=== PATIENT | male | born 2000 | race Caucasian/White ===

== ENCOUNTER 2020-08-13 11:27 | Observation (INO) | payer OTHER, SELFPAY ==
[2020-08-13] VITALS (11 sets, daily range): BP systolic 115–147; BP diastolic 67–98; PULSE 78–120; RESP 16–18; TEMP 36.2–37.4; O2SAT 94–100; BMI 27.9; BMI 27.6
--- NOTE | 2020-08-13 11:39 | CT_ITS ---
EXAM: CT ABDOMEN AND PELVIS WITH INTRAVENOUS CONTRAST CLINICAL INDICATION: RLQ pain -- IV PO Contrast TECHNIQUE: Helically acquired images were obtained of the abdomen and pelvis with intravenous contrast. This CT exam was performed using one or more of the following dose reduction techniques: automated exposure control, adjustment of the mA and/or kV according to patient size, and/or use of iterative reconstruction technique. This report was created using [employer] report generation technology. CONTRAST: Oral and amp; IV Gastrografin and amp; 100mL Isovue-300 COMPARISON: None. FINDINGS: LOWER THORAX: Unremarkable. Lung bases are clear. No cardiomegaly. No significant pericardial effusion. ABDOMEN: LIVER: Unremarkable. Homogeneous. No focal mass. GALLBLADDER AND BILE DUCTS: Unremarkable. No calcified gallstones. No gallbladder distention or wall edema. No intra- or extrahepatic biliary ductal dilation. PANCREAS: Unremarkable. No focal cystic or solid mass. SPLEEN: Splenectomy. ADRENALS: Unremarkable. No nodules. KIDNEYS AND URETERS: Unremarkable. Normal renal size and position. No hydronephrosis. Normal variant retroaortic left renal vein. STOMACH AND BOWEL: Unremarkable. No stomach or bowel distention. No focal inflammatory change. PELVIS: APPENDIX: Dilated (10 mm) thick walled appendix in the right lower quadrant with periappendiceal and pericecal stranding suggesting appendicitis. BLADDER: Unremarkable. REPRODUCTIVE: Unremarkable as visualized. No mass. ABDOMEN and PELVIS: INTRAPERITONEAL SPACE: Unremarkable. No ascites or other fluid collection. No free air. BONES/JOINTS: Unremarkable. No suspicious lytic or blastic abnormality. SOFT TISSUES: Unremarkable. No discrete abdominal or pelvic wall hernia. VASCULATURE: Unremarkable. Abdominal aorta is non-dilated. LYMPH NODES: Reactive lymph nodes in the right lower quadrant mesentery. CT/Abdomen/Pelvis WITH Contrast IMPRESSION: Dilated (10 mm) thick walled appendix in the right lower quadrant with periappendiceal and pericecal stranding suggesting appendicitis. No focal abscess, perforation or pneumoperitoneum. Electronically Signed: Ernesto Zimmerman MD ([place]) at 14:02 EDT , Service support ,
--- NOTE | 2020-08-13 11:40 | ED.VIS.GI ---
HPI HPI - GI History of Present Illness Chief Complaint: Abd Pain Informant: patient and parent Abdominal Pain/Flank Pain Onset: Yesterday (around 13 hrs prior to eval here) Context: Gradual Onset Timing: Continuous Quality: Aching Location: RLQ and - (Initially felt a little in left abdomen/periumbilical as well as RLQ) Current Severity: Moderate Maximum Severity: Moderate Worsened by: Car ride Relieved by: Nothing Nausea/Vomiting/Emesis GI Symptom: Positive for Nausea; Negative for Vomiting Diarrhea/Melena/Hematochezia GI Symptom: Negative for Diarrhea, Melena and Hematochezia Associated Symptoms Associated Symptoms: Negative for Dysuria, Frequency, Hematuria and Urgency Narrative Narrative: Spontaneous onset and worsening of right lower quadrant pain, does not radiate but did become more focused in the right lower quadrant today whereas yesterday it was also in the left mid abdomen. No subjective fevers or chills prior to coming here. Initially was at urgent care and there was concern for appendicitis so they referred him here to the emergency department. Nauseated, no vomiting or diarrhea. He has a remote history of ITP that was treated with a splenectomy, he states he has had no acute issues recently. [facility] Medical History Chronic ITP (idiopathic thrombocytopenia) History of cleft palate Allergy/AdvReac Type Severity Reaction Status Date / Time No Known Allergies Allergy Verified 08/13/20 11:31 Surgical History Cleft palate H/O splenectomy Social History Smoking Status: Never smoker ROS ROS ED Constitutional Constitutional ED: Denies chills or fever(s) Eyes Eyes: Denies change in vision or diplopia ENT ENT ED: Denies rhinorrhea or sore throat Cardiovascular Cardiovascular: Denies chest pain or palpitations Respiratory/Chest Respiratory/Chest: Denies cough or dyspnea Gastrointestinal Gastrointestinal: Reports as per HPI, abdominal pain and nausea; Denies diarrhea or vomiting Genitourinary Genitourinary ED: Denies dysuria or hematuria Musculoskeletal Musculoskeletal: Denies back pain or neck pain Integumentary Denies abscess or rash Neurologic Neurologic: Denies headache(s), paresthesias or weakness Psychiatric Psychiatric: Denies anxiety or suicidal thoughts EXAM Physical Exam Const Vital Signs: 08/13/20 11:28 Temperature 99.4 F H Temperature Source Temporal Pulse Rate 120 H Respiratory Rate 18 Blood Pressure 136/97 H Blood Pressure Mean 110 Pulse Ox 94 Oxygen Delivery Method Room Air Positive well nourished and well developed General Appearance ED: well developed and NAD HEENT Reports moist mucous membranes normocephalic and atraumatic Eyes PERRL and EOMs intact bilaterally Neck full ROM and supple Resp normal respiratory effort and clear to auscultation bilaterally Cardio regular rate, regular rhythm and no murmurs Rate: tachycardic GI non-distended Auscultation: normoactive bowel sounds Palpation: soft and tender RLQ, McBurney's point and Psoas sign (Mildly positive with negative obturator and Rovsing signs) Back/Spine no CVA tenderness General Back: other FROM Extremity normal to inspection General Extremety ED: Negative for edema, pulses abnormal or tenderness General Extremity: Negative for edema or pulses abnormal Neuro oriented x3, CN's II-XII intact bilaterally and no sensory deficits noted Sensorium / Orientation: awake and alert Motor Exam: strength 5/5 throughout Skin no rashes or lesions noted and no wounds MDM MDM MDM Narrative Medical decision making narrative: Patient history, exam, and CT are consistent with acute appendicitis. His white blood count is 18.6. Patient is comfortable and declined analgesics. He was given IV fluids, Zofran, Zosyn, discussed with Dr. Ordonez, who will plan for operative management. Lab Data Attestation: I reviewed the patient's lab results. Labs: Laboratory Results - last 24 hr 08/13/20 08/13/20 08/13/20 11:49 11:49 13:06 WBC 18.6 H RBC 5.95 Hgb 17.2 H Hct 49.9 MCV 83.9 MCH 28.9 MCHC 34.5 RDW Std Deviation 40.9 RDW Coeff of Kellie 13.3 Plt Count 465 H MPV 8.7 Immature Gran % (Auto) 0.300 Neut % (Auto) 75.1 H Lymph % (Auto) 15.2 L Reeves % (Auto) 8.7 Eos % (Auto) 0.4 Baso % (Auto) 0.3 Absolute Neuts (auto) 13.9 H Absolute Lymphs (auto) 2.82 Nucleated RBC % 0 Differential Comment SCANNED Diff Path Review May foll Platelet Estimate ADEQUATE RBC Morphology NORM C+C Sodium 138 Potassium 3.7 Chloride 105 Carbon Dioxide 27.0 Anion Gap 6 BUN 14 Creatinine 1.14 Estim Creat Clear Calc 110.09 Est GFR (MDRD) Af Amer 104 Est GFR (MDRD) Non-Af 86 BUN/Creatinine Ratio 12.3 Glucose 98 Calcium 9.3 Urine Color Yellow Urine Clarity Clear Urine pH 6.5 Ur Specific [place] 1.005 Urine Protein Negative Urine Glucose (UA) Normal Urine Ketones Negative Urine Occult Blood Negative Urine Nitrite Negative Urine Bilirubin Negative Urine Urobilinogen Normal Ur Leukocyte Esterase Negative Urine RBC 0 SEEN Urine WBC 0 SEEN Ur Squamous Epith Cells 0-5 SEEN Urine Bacteria 0 SEEN Urine Mucus 0 SEEN Radiography Diagnostic Testing: Radiology Impression Abdomen/Pelvis CT 08/13/20 11:39 IMPRESSION: Dilated (10 mm) thick walled appendix in the right lower quadrant with periappendiceal and pericecal stranding suggesting appendicitis. No focal abscess, perforation or pneumoperitoneum. Electronically Signed: Ernesto Zimmerman MD ([place]) at 14:02 EDT , Service support , Discharge Plan Dx/Rx/DC Orders Clinical Impression: Acute appendicitis Disposition Disposition: Acute Care Hospital [facility]
[2020-08-13 11:55] LABS: Absolute Lymphocyte Count 2.82 X10^3/uL (0.83-4.51); Absolute Neutrophil Count 13.9 X10^3/uL (2.0-7.7); Basophil# 0.05 X10^3/uL; Basophil% 0.3 % (0-1); Eosinophil# 0.08 X10^3/uL; Eosinophils% 0.4 % (0-5); Hematocrit 49.9 % (40-54); Hemoglobin 17.2 g/dL (13.0-16.5); Lymphocyte # 2.82 X10^3/ul (0.83-4.51); Lymphocyte % 15.2 % (19-41); Mean Corp Hgb Conc 34.5 g/dL (32-36); Mean Corpuscular Hgb 28.9 pg (27.0-32.0); Mean Corpuscular Volume 83.9 fL (80-94); Mean Platelet Vol. 8.7 fl (6.2-12.0); Monocyte# 1.62 X10^3/uL; Monocyte% 8.7 % (0-10); NRBC Flagged by Analyzer 0 % (0-5); Neutrophil # 13.94 X10^3/uL (2.7-7.7); Neutrophil % 75.1 % (47-70); POSITIVE DIFFERENTIAL YES; Platelet Count 465 K/mm3 (150-450); RBC Distribution Width CV 13.3 % (11.6-14.6); RBC Distribution Width SD 40.9 fl (35.1-43.9); Red Blood Count 5.95 M/mm3 (4.6-6.2); White Blood Count 18.6 K/mm3 (4.4-11.0)
[2020-08-13] MEDS: Ondansetron 4 MG/2 ML Vial IV (11:55)
[2020-08-13 11:56] LABS: Differential Indicated SCAN CRITERIA MET
[2020-08-13 12:07] LABS: Anion Gap 6 (5-15); BUN 14 mg/dL (7-18); BUN/Creat Ratio 12.3 RATIO (10-20); Calcium,Total 9.3 mg/dL (8.5-10.1); Chloride 105 mmol/L (98-107); Creatinine, Serum 1.14 mg/dL (0.70-1.30); EST Glomerular Filtration Rate 86 mL/min (>60); Est Glom Filt Rate - Afr Amer 104 mL/min (>60); Estimated Creatinine Clearance 110.09 ml/min; Glucose 98 mg/dL (74-106); Potassium 3.7 mmol/L (3.5-5.1); Sodium Level 138 mmol/L (136-145)
[2020-08-13 12:16] LABS: Platelet Estimate ADEQUATE (ADEQ)
[2020-08-13 12:17] LABS: Red Cell Morphology NORM C+C NORMAL (NORM C&C)
[2020-08-13 12:18] LABS: Differential Comment SCANNED
[2020-08-13 13:25] LABS: Bacteria 0 SEEN /hpf (None Seen); Mucous, Urine 0 SEEN /hpf (<or=2+); Red Blood Cells-Urine 0 SEEN /hpf (0-5); White Blood Cells 0 SEEN /hpf (0-5)
[2020-08-13 13:27] LABS: Color, Urine Yellow (Yellow); Glucose, Dipstick Normal (Normal); Ketone-Dipstick Negative (Negative); Leukocyte Esterase-Dipstick Negative /ul (Negative); Nitrite-Dipstick Negative (Negative); Occult Blood-Urine Negative /ul (Negative); Protein-Dipstick Negative (Negative); Specific Gravity, Urine 1.005 (1.002-1.030); Urine Bilirubin Dipstick Negative (Negative); Urine Clarity Clear (Clear); Urine Urobilinogen Normal (Normal); Urine pH 6.5 (5.0 - 8.0)
[2020-08-13 13:34] LABS: Squamous Epithelial Cells - UA 0-5 SEEN /hpf (0-5)
--- NOTE | 2020-08-13 13:47 | NURSING ---
DR BANSAL PAGEJeffry
--- NOTE | 2020-08-13 13:58 | HP.PCM.SX_ITS ---
HPI - General HPI Narrative YOLA PANG, is a 19 M who presents to the ER due to right lower quadrant pain. This started last night and continued till this morning. Patient did have nausea and vomiting. Patient previously had a splenectomy due to chronic ITP which was in 2017. Patient CT abdomen pelvis consistent with acute appendi citis. Patient white blood count 18. Patient did receive Zosyn in the ER. [facility] Medical History (Updated 08/13/20 @ 13:[address] Chace Vazquez MD) Chronic ITP (idiopathic thrombocytopenia) History of cleft palate Allergy/AdvReac Type Severity Reaction Status Date / Time No Known Allergies Allergy Verified 08/13/20 11:31 Surgical History (Updated 08/13/20 @ 11:[address] Chace Vazquez MD) Cleft palate H/O splenectomy Social History Smoking Status: Never smoker Vital Signs Vital Signs Vital Signs: 08/13/20 11:28 Temperature 99.4 F H Temperature Source Temporal Pulse Rate 120 H Respiratory Rate 18 Blood Pressure 136/97 H Blood Pressure Mean 110 Pulse Ox 94 Oxygen Delivery Method Room Air Weight Weight: 200 lb 9.93 oz Body Mass Index (BMI) 27.9 Physical Exam Const alert, oriented x3 and no apparent distress HEENT normocephalic and head/scalp atraumatic Resp normal respiratory effort Cardio regular rate GI soft to palpation; Negative for non-distended Palpation: tender RLQ; Negative for guarding Extremity no clubbing, cyanosis or edema Neuro CN's II-XII intact bilaterally Psych mental status grossly normal Results Lab / Micro Data Result Diagrams: 08/13/20 11:49 08/13/20 11:49 Labs: Laboratory Results - last 24 hr 08/13/20 08/13/20 08/13/20 11:49 11:49 13:06 WBC 18.6 H RBC 5.95 Hgb 17.2 H Hct 49.9 MCV 83.9 MCH 28.9 MCHC 34.5 RDW Std Deviation 40.9 RDW Coeff of Kellie 13.3 Plt Count 465 H MPV 8.7 Immature Gran % (Auto) 0.300 Neut % (Auto) 75.1 H Lymph % (Auto) 15.2 L [place] % (Auto) 8.7 Eos % (Auto) 0.4 Baso % (Auto) 0.3 Absolute Neuts (auto) 13.9 H Absolute Lymphs (auto) 2.82 Nucleated RBC % 0 Differential Comment SCANNED Diff Path Review May foll Platelet Estimate ADEQUATE RBC Morphology NORM C+C Sodium 138 Potassium 3.7 Chloride 105 Carbon Dioxide 27.0 Anion Gap 6 BUN 14 Creatinine 1.14 Estim Creat Clear Calc 110.09 Est GFR (MDRD) Af Amer 104 Est GFR (MDRD) Non-Af 86 BUN/Creatinine Ratio 12.3 Glucose 98 Calcium 9.3 Urine Color Yellow Urine Clarity Clear Urine pH 6.5 Ur Specific [place] 1.005 Urine Protein Negative Urine Glucose (UA) Normal Urine Ketones Negative Urine Occult Blood Negative Urine Nitrite Negative Urine Bilirubin Negative Urine Urobilinogen Normal Ur Leukocyte Esterase Negative Urine RBC 0 SEEN Urine WBC 0 SEEN Ur Squamous Epith Cells 0-5 SEEN Urine Bacteria 0 SEEN Urine Mucus 0 SEEN Assessment & Plan Assessment/Plan (1) Acute appendicitis: PLAN: 1. Discussed procedure laparoscopic appendectomy, possible open, possible bowel resection along with the risk but not limited to bleeding, infection/abscess, injury to another organ (small bowel, colon, etc.), adhesion, hernia at incision sites, and anesthesia. Patient's mother no further question this time. Marta Ordonez M.D. Pager: [phone] [facility] [address] [place] [address], [address] [place] [address] Office: [phone] Procedure Criteria Type of Procedure Procedure Type: Elective Elective Risks - COVID COVID Risk Discussion: The surgeon/proceduralist and patient have discussed in detail the risk of exposure to and/or potential harm posed by the COVID-19 virus with having a surgery/procedure at this time versus the risk of delaying the surgery/procedure. It is not possible to know either the risk of delaying the surgery or procedure or chance of getting an infection with perfect accuracy, but a joint decision was made between the patient and the surgeon/proceduralist to proceed at this time with the scheduled surgery/procedure as indicated on the consent form.
--- NOTE | 2020-08-13 14:12 | NURSING ---
OR THEN 319 APPENDICITIS ROBOTHAM
--- NOTE | 2020-08-13 14:42 | NURSING ---
DR BANSAL IN ROOM
--- NOTE | 2020-08-13 14:45 | APP_PTH ---
PATIENT: YOLA PANG LOC: [facility] U#:[id number] AGE/SX: 19/M ROOM: W[facility]319 RE08/13/[address]: Dr. Marta Ordonez MD : 2000 BED: 1 DIS: 08/13/2020 SPEC #: [id number] RECD: 08/15/20 10:31 STATUS: NETTIE REQ #: [id number] SKYLAR: 08/13/20 14:[address]: Marta Ordonez DEPT: SURGICAL PATHOLOGY RECD BY: Marly Douglas ENTERED: 08/15/20 13:45 SP TYPE: APPENDIX OTHR DR: Dr. Bert Bravo MD Tissues: Appendix, NOS Procedures: Surgery Specimen Level III HEADER OPERATION: Laparoscopic appendectomy PRE-OP DIAGNOSIS: Acute appendicitis TISSUE SUBMITTED: Appendix MICROSCOPIC DIAGNOSIS Appendix, appendectomy: Acute appendicitis and periappendicitis. COURTNEY:lisandra 08/16/2020 MICROSCOPIC DESCRIPTION Slides are reviewed. GROSS DESCRIPTION Received in fixative is one container labeled with the patient's name and designated appendix. The specimen consists of an L-shaped appendix measuring 9.5 cm in length and up to 0.8 cm in diameter. The attached periappendiceal adipose tissue measures up to 2 cm in width. The serosal surface is congested and focally covered with soto, purulent exudate. No obvious perforation is identified. The lumen does not contain a fecalith. Community Marketing Coordinator sections are submitted in one cassette. / SJ:lisandra 08/15/20 TC:2 CPT: 27648
--- NOTE | 2020-08-13 14:54 | ED.RN ---
OR called for report, states they are ready for patient now in PACU. Dr Chiang at bedside and takes patient to OR herself.
[2020-08-13] MEDS: Bupiv/Epi 0.25% 30 ML Vial (15:42)
--- NOTE | 2020-08-13 15:49 | PCM.OPRPT ---
Report of Operation Date of Procedure: 08/13/20 Pre-Operative Diagnosis: Acute appendicitis Post-Operative Diagnosis: Same Surgery/Procedure Performed:: Laparoscopic appendectomy Surgeon: Marta Ordonez Type of Anesthesia: General/Supplemental Anesthesiologist: Homar Jaramillo Special Medications: Zosyn 3.375 g IV x1 in the ER for acute appendicitis Specimen's removed: Appendix Estimated Blood Loss (mL): < 10- cc Fluids Replaced: Per anesthesia Description of Procedure: Indications: 19-year-old male presented to the ER with new right lower quadrant pain last night. On workup he was found to have acute appendicitis on CT and a leukocytosis of 18.6. Patient was started on antibiotics in the ER for acute appendicitis-Zosyn IV Description of the procedure: The patient was placed on operating table in supine position. General anesthesia was induced. A timeout was completed verifying correct patient, procedure, position and special equipment prior to beginning procedure. Abdomen was prepped and draped in usual sterile fashion. Incision was made in the natural skin line above the umbilicus with a 15 blade scalpel. The fascia was elevated and incised. Entry into the peritoneum was confirmed visually and no bowel was noted in the vicinity of the incision. The Arellano trocar was placed under direct vision. Abdomen insufflated with a pressure of 12-15 mmHg. Patient tolerated insertion well. The scope was inserted and the abdomen inspected. No injuries from initial trocar placement were noted. Minimal amount of fluid was seen in the right lower quadrant. An direct visualization 2 -5 mm trocars were placed one above the symphysis pubis and below the hairline and one in the left lower quadrant. Care is taken to avoid injury to the bladder and inferior epigastric vessels. The table was placed in Trendelenburg position with the right side elevated. Abdomen was inspected and found some small splenosis in the left lower quadrant left mid abdomen along the abdominal wall from previous laparoscopic splenectomy. The appendix was grasped with atraumatic grasper and elevated. It was noted to be inflamed. A window was developed in the mesoappendix at the point between the base of the appendix and the cecum. An endoscopic 45 mm linear cutting stapler blue load was then used to divide and staple the base of the appendix. Harmonic was used to divide the mesoappendix The appendix was withdrawn into the Arellano trocar after being placed endoscopically retrieval bag. Appendix was sent to pathology. The appendiceal stump was then irrigated and hemostasis was assured. Fluid was suctioned no other pathology was identified. Secondary trochars were removed under direct visualization. No bleeding was noted trocar sites. The laparoscope withdrawn and the umbilical trocar removed. The abdomen was allowed to collapse. Local anesthesia of 30 mL of 0.5% Marcaine was used at the incision sites. The umbilical trocar site was closed with the [id number] 0 Vicryl suture. The skin was closed up to clear sutures of 4-0 Monocryl and Steri-Strips. The patient was extubated. The patient tolerated the procedure well and was taken to the postanesthesia care unit in satisfactory condition. Complications None
--- NOTE | 2020-08-13 15:52 | EX.PCM.DISCH ---
Discharge Instructions Diet Discharge Diet: Light diet - advance as tolerated Activity Discharge Activity: May Not Drive (while taking narcotic pain medications.) May shower in (days): 1 Lifting Restrictions: no lifting >20 lbs x 2 wks, no strenuous exercise for 4 wks Dressing / Incision Call your doctor if your incision/area has: Continuous Slow Oozing, Sudden Increased Bleeding, Increased Pain/ Swelling, Increased Redness, Foul Smelling Discharge and Swelling at the incision site Call your doctor if you observe: Fever of 101 or Higher Remove Dressing in: 2 days Cleanse incision/area with: Soap & Water Additional Dressing/Incision Instructions:: Steri-Strips will fall off in 7 to 10 days, if they do not fall off okay to remove after 10 days. Follow Up Care Please Follow Up With: Marta Ordonez MD When: Call the office for a follow-up appointment 2 weeks; after 5 PM and on the weekends call [phone] with any concerns. Test Results: Test results from this visit will be discussed in further detail at your follow-up appointment, if applicable. Discharge Plan Admission Admit Date/Time: 08/13/20 14:16 Attending Provider: Marta Ordonez Primary Care Provider: Bert Bravo Instructions Additional Instructions / Restrictions: Okay to take ibuprofen 400-600 mg PO q6hr PRN along with the hydrocodone/acetaminophen. Avoid Tylenol since there is already Tylenol in the hydrocodone/acetaminophen. Take all pain meds with food. Hydrocodone/acetaminophen can cause constipation recommend taking daily stool softener (i.e. Colace/docusate) while taking the pain meds. Recommend starting some MiraLAX in 1-2 days if no bowel movement. If still no bowel movement following day recommend taking magnesium citrate half the bottle and waiting 4-6 hours if still no results take the other half the bottle. Discharge Orders/Prescriptions Prescriptions: New hydrocodone-acetaminophen 5-325 mg tablet 1 tab PO Q6H PRN (Reason: pain) 3 Days Qty: 14 RF: 0 Referrals / Follow Up: Bert Bravo MD [Primary Care Provider] - Disposition Disposition (needs filled in before D/C Order can be placed): Home, self care
[2020-08-13] MEDS: Lactated Ringers 1,000 ML 120 ML IV (16:00)
[2020-08-13] MEDS: HYDROcodone Bitartrate/Apap 5/325 Tablet PO (17:56)
[2020-08-13] MEDS: 0.9% Saline Lock 10 ML Syringe IV (17:56)
--- NOTE | 2020-08-13 22:26 | NURSING ---
Pt.D/C'd and left the floor at 2049 with Vahid SENIOR ACCOUNTING SPECIALIST and mom. VSS and all other criteria met.
[2020-08-15 13:30] LABS: Pathologist Review Reviewed
== END 2020-08-13 20:50 | disposition home or self-care (01) ==
LOC: ED 13:56 → MS3 15:57
PROVIDERS: Admitting Provider Surgery; Emergency Provider Emergency Medicine; PCP Family Medicine; Visit Provider Surgery
PROC: 0DTJ4ZZ Resection of Appendix, Percutaneous Endoscopic Approach (ICD-10-PCS; CPT 44970; principal; 2020-08-13 14:45)
DX: K35.80 Unspecified acute appendicitis (principal); D69.3 Immune thrombocytopenic purpura
CPT/HCPCS: 00840; 44970; 74177; 80048; 81001; 85025; 88304; 96361; 96365; 96375; 99284; J7120; Q9967; A4216; C1760; J2405